=== PATIENT | female | born 1960 | race Caucasian/White ===

== ENCOUNTER 2019-10-20 11:26 | Day surgery (SDC) | payer MEDICARE, MEDICAID ==
[~2019-10-20 11:26] MED LIST: AMOX500T PO; BUPR150T6 PO; CALC500T13 PO; CHOL500050 PO; DIVA125C2 PO; DONE10TA7 PO; FENO145T3 PO; FLUT16SP NS; HYDROmorphone 2 MG/ML VIAL IV PRN; IV RINGERS,LACTATED 1000ML 1,000 ML IV SCH; LEVO75TA5 PO; LIDOCAINE 1% PF 2 ML VIAL. ID PRN; METF500T16 PO; MORPHINE SULFATE 2 MG/ML VIAL. IV PRN; MULT-505 PO; ONDANSETRON PF 4 MG/2 ML VIAL. IV PRN; PALI234D IM; POLY17PO28 PO; PROCHLORPERAZINE 10 MG/2 ML VIAL. IV PRN; RISP0.5T3 PO; TIOT18CA IH; TRAZ-123 PO; fentaNYL PF VIAL 100 MCG/2 ML VIAL IV PRN
[2019-10-20] MEDS ORDERED: INSULIN LISPRO 100 UNIT/ML 3ML VIAL for OP,RR ONLY. SQ PRN (12:30)
[2019-10-20] MEDS ORDERED: ROCURONIUM 50 MG/5 ML VIAL. ONE (12:35)
[2019-10-20] MEDS ORDERED: fentaNYL PF VIAL 100 MCG/2 ML VIAL ONE (12:35)
[2019-10-20] MEDS ORDERED: NEOSTIGMINE METHYLSULFATE 5 MG/5 ML SYRINGE. ONE (12:35)
[2019-10-20] MEDS ORDERED: DEXAMETHASONE SOD PHOS 4 MG/ML VIAL ONE (12:38)
[2019-10-20] MEDS ORDERED: PROPOFOL 10 MG/ML (20ML) VIAL. IV ONE (12:38)
[2019-10-20] MEDS ORDERED: ONDANSETRON PF 4 MG/2 ML VIAL. ONE (12:38)
[2019-10-20] MEDS ORDERED: MIDAZOLAM HCL/PF 2 MG/2 ML VIAL. ONE (12:38)
[2019-10-20] MEDS ORDERED: LIDOCAINE 2% PF 5 ML VIAL. ONE (12:38)
[2019-10-20] MEDS ORDERED: GELATIN SPONGE SIZE 100. ONE (13:25)
[2019-10-20] MEDS ORDERED: BUPIVACAINE-EPI 0.5%-1:200000 MPF 30 ML VIAL. ONE (13:25)
[2019-10-20] MEDS ORDERED: CHLORHEXIDINE 0.12% 15 ML MOUTHWASH. ONE (13:25)
[2019-10-20] MEDS ORDERED: NEOMY/BACITR/POLYMYXIN OINT PACKET. TP ONE (13:28)
[2019-10-20] MEDS ORDERED: ERTAPENEM 1 GM IV ONE (13:43)
[2019-10-20] MEDS ORDERED: ceFAZolin SODIUM IV Push 1 GM VIAL. IVP ONE (13:44)
[2019-10-20] MEDS ORDERED: BACITRACIN 50,000 UNIT in IV NORMAL SALINE 500ML BAG 500 ML IRR ONE (14:00)
[2019-10-20] MEDS ORDERED: GELATIN SPONGE SIZE 12-7MM SPONGE. ONE (14:14)
--- NOTE | 2019-10-20 14:59 | PDOC4 ---
OPERATIVE NOTE Date: Date: October 20, 2019 Pre-Op Diagnosis: Schizophrenia Bipolar COPD Gross caries # 3,4 ,29,30 Upper right odontogenic infection Post-Op Diagnosis: Schizophrenia Bipolar COPD Gross caries # 3,4 ,29,30 Upper right odontogenic infection Procedure Performed: Surgical excraction of Gross caries # 3,4 ,29,30 I&D upper right abscess Surgeon: belen Anesthesia Type: mcnitt Blood Loss: 20 Specimans Obtained: teeth disposed of in OR Findings: see dictation Complications: none Operative Note: I&D Gross caries # 3,4 ,29,30 TERESO ZACARIAS DMD October 20, 2019 14:59
[2019-10-20 16:15] VITALS: BP 140/102
--- NOTE | 2019-10-20 19:59 | OP ---
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 ATTENDING PHYSICIAN: Jc Zacarias DMD PREOPERATIVE DIAGNOSES: 1. Schizophrenia. 2. Chronic obstructive pulmonary disease. 3. Bipolar. 4. Caries, nonrestorable teeth numbers 3, 4, 29, and 30. 5. Odontogenic abscess, upper right side of mouth. POSTOPERATIVE DIAGNOSES: 1. Schizophrenia. 2. Chronic obstructive pulmonary disease. 3. Bipolar. 4. Caries, nonrestorable teeth numbers 3, 4, 29, and 30. 5. Odontogenic abscess, upper right side of mouth. PROCEDURES PERFORMED: Incision and drainage of odontogenic abscess in the upper right side of mouth and surgical removal of teeth numbers 3, 4, 29, and 30. BRIEF HISTORY: The patient is a 58-year-old female who is referred to our clinic. She is schizophrenic who was under care of outside nursing facility. She has had some significant swelling in the right side of her face. This deemed to be secondary to an odontogenic abscess from nonrestorable teeth 3, 4, 29, and 30. These teeth are grossly carious. She has limited verbal interaction. She does consent and she does able to follow the conversation and has requested these teeth be removed as they are causing her pain and discomfort. She is cooperative with her exam. Considering her significant past medical history and concern for her overall wellness, we escalated the setting of care to the operating room. Consent was obtained at the facility and she was scheduled for surgery here at the [facility]. DRAINS PLACED: None. Incision and drainage was completed with irrigation and blunt dissection. ESTIMATED BLOOD LOSS: Approximately 20 mL. SPECIMEN SENT: None. Teeth were disposed off in the OR. COMPLICATIONS: None noted at the time of surgery. OPERATIVE DESCRIPTION: After the history and physical was updated in the preoperative holding area, the patient was transported by the Anesthesia Service to the operating suite, placed in the supine position and general anesthesia was induced. The patient was intubated without complication. The tube was secured in the upper right side of the face. The timeout was initiated. All surgical staff was in agreeance. The patient was then prepped and draped in normal sterile fashion. A moistened throat pack was placed. Local anesthesia in the form of 0.5% Marcaine, 1:200,000 epinephrine was administered, approximately 20 mL in the beginning of the procedure and an additional 5 mL at the culmination of the procedure. Surgery began in the upper right and in the lower right with #15 blade and sharp dissection was created to create an envelope flap and a full-thickness mucoperiosteal flap was reflected buccally. Teeth numbers 3, 4, 29, and 30 were luxated, elevated, and extracted and the bone was contoured with rongeurs and smoothed with a bone file. These extraction sites were curetted and lavaged with copious normal sterile saline. Necrotic tissue was removed. Gelfoam was packed into these sites and 3-0 chromic gut suture was employed to close each site with a running locked 3-0 chromic gut suture. The upper right maxillary vestibular abscess was managed with #15 blade as well. A scalpel incision was created in the right maxillary vestibule approximately 1 cm above the gingival line. Care was taken to avoid the local anatomy and Stensen's duct. The incision was taken down to bone. Full-thickness mucoperiosteal flap was created and blunt dissection was performed in the upper right canine space and upper right maxillary vestibule. A limited amount of purulence was obtained. The site was closed with 2 sutures and allowed to remain open ultimately so that this could self drain. The sutures were placed to help keep the wound hemostatic, but the wound was still able to drain spontaneously even with those sutures in place. Oral cavity was then lavaged and suctioned. The moistened throat pack was removed. An OG was passed and the stomach was decompressed. The patient was then returned to the care of Anesthesia, where she was awakened and extubated without complication and transported to the PACU in stable condition. JC ZACARIAS DMD DR: Christal JOB#: [id number] / [id number]
== END 2019-10-20 16:30 | disposition home or self-care (01) ==
LOC: SURG 11:26
PROVIDERS: ATTEND Dentist Oral and Maxillofacial Surgery
DX: K04.7 Periapical abscess without sinus (principal); Z11.59 Encounter for screening for other viral diseases; K02.9 Dental caries, unspecified; F20.9 Schizophrenia, unspecified; F31.9 Bipolar disorder, unspecified; J44.9 Chronic obstructive pulmonary disease, unspecified; Z88.1 Allergy status to other antibiotic agents; Z79.899 Other long term (current) drug therapy; Z79.2 Long term (current) use of antibiotics
CPT/HCPCS: 36415; 41007; 41899; 82962; 87635; A7015; J0690; J1100; J2250; J2405; J2704; J3010; J3490; J7040; J7120; J1335; J2710